=== PATIENT | male | born 1950 | race Caucasian/White ===

== ENCOUNTER 2016-06-13 17:38 | Inpatient (IN) | payer MEDICARE ==
[~2016-06-13] VITALS: Ht 185.4 cm; Wt 82.6 kg
[2016-06-13] MEDS ORDERED: IV NORMAL SALINE 1,000ML 1,000 ML IV SCH ×2 (18:05→19:34)
--- NOTE | 2016-06-13 18:08 | PHYS DOC ---
General Chief Complaint: NAUSEA/VOMITING/DIARRHEA Stated Complaint: DEHYDRATION Time Seen by MD: 18:05 Source: patient Exam Limitations: no limitations Problems: History of Present Illness Initial Comments Pt is 66/M to ED c/o n/v and dehydration. Pt states he's had n/v/d since last Friday. States he's been unable to keep anything down since then, today dry heaves. Passing lots of gas, generalized abdominal discomfort no focal pains or bloating no blood in stool/emesis. Was having loose watery stools but now "just foam and lots of gas." No travel/bad food exposure, was seen at PCP Dr Montez's office today and sent here. He reports 18# weight loss past week. On arrival 97.9, 54, 20, 96/40, 97 RA Pt reports he had a colonoscopy 05/30 and his bowels have been altered since that time but n/v began Friday. He's had subjective fevers/chills/sweats/KAPADIA/ myalgias no cp/sob/focal weakness/SOB. 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, skin cancer) Surgical History: other (back, skin cancer) Social History Smoker: quit greater than 1 year Alcohol: other (4-12 beers/week) Drugs: none Review of Systems Constitutional: chills diaphoresis fever malaise weakness Respiratory: coughdenies shortness of breath, denies wheezing Cardiovascular: denies chest pain, denies palpitations, denies syncope Gastrointestinal: see HPI Genitourinary: denies dysuria, denies frequency, denies hematuria Musculoskeletal: see HPIdenies joint swelling, denies neck pain Psychiatric/Neurological: headachedenies numbness, denies paresthesia, denies weakness Physical Exam General Appearance: WD/WN, moderate distress Eyes: bilateral eye EOMI, bilateral eye PERRL, bilateral eye normal inspection Ear, Nose, Throat: hearing grossly normal, normal ENT inspection (dry membranes ) Neck: non-tender, supple Respiratory: normal breath sounds, no respiratory distress Cardiovascular: normal peripheral pulses, bradycardia Gastrointestinal: soft (ND, BS nl, diffuse TTP without localization, no r/g/ mass) Rectal: deferred Back: no CVA tenderness, no vertebral tenderness Extremities: non-tender, normal inspection Neurologic/Psychiatric: sampling expert II-XII nml as tested, no motor/sensory deficits, alert, normal mood/affect, oriented x 3 Skin: pallor (poor skin turgor) Orders, Labs, Meds Pt HR noted to be low for extended periods running 30's/40's pt denies sx but has dizziness with standing. Pt hiccups often causing skipped beats and HR decrease. EKG: sinus yossi 40 bpm no STEMI AAS: no acute cardiopulmonary process, nonspecific nonobstructive bowel gas pattern. Pertinent labs: WBC 12, INR 1.2, K+ 3.3 (20 meq KCL given), BUN 37, Cr 1.2, CE neg. Pt continues to yossi despite now running 2nd liter NS IV bolus. Will likely need inpatient management, pt is agreeable. 2118: I discussed pt with cosmetic surgeon Cardiology Dr Chavez. He recommends dopamine 2.5-5mg, hydration, monitor, will see pt in am. 2127: Pt discussed with Dr Gomez who accepts ICU/inpatient admission. Departure Disposition: ADMITTED INPATIENT Diagnosis: arrhythmia, hypovolemia, hypokalemia, n/v, Condition: STABLE Additional Instructions: ICU admission Dr Gomez is accepting. GABRIEL EUGENE DO Jun 13, 2016 18:08
--- NOTE | 2016-06-13 18:11 | EKG ---
[address] [address] Test Date: 2016-06-13 Test Time: 18:09:33 Pat Name: MOIRA ARIZMENDI Department: Room: Gender: M Health And Nutrition Specialist: : [id number] Requested By: GABRIEL EUGENE Order Number: [id number] Reading MD: Measurements Intervals [place] Rate: 40 P: ME: QRS: 44 QRSD: 88 T: 68 QT: 526 QTc: 428 Interpretive Statements JUNCTIONAL RHYTHM T ABNORMALITY IN LATERAL LEADS NON SPECIFIC ST DEPRESSION ABNORMAL ECG RI6.01 Unconfirmed report No previous ECG available for comparison
[2016-06-13 18:32] LABS: BASO % 0 % (0-3); EOS % 0 % (0-3); HEMATOCRIT 40.2 % (39.0-53.0); HEMOGLOBIN 13.5 g/dL (13.0-17.5); LYMPH # 5.7 x10^3/uL (1.0-4.8); LYMPH % 48 % (24-48); MEAN CORPUSCULAR HEMOGLOBIN 30 pg (25-35); MEAN CORPUSCULAR HGB CONC 34 g/dL (31-37); MEAN CORPUSCULAR VOLUME 90 fL (79-100); MONO # 0.7 x10^3/uL (0.0-1.1); MONO % 6 % (0-9); NEUT # 5.5 x10^3uL (1.8-7.7); NEUT % 46 % (31-73); PLATELET COUNT 357 x10^3/uL (140-400); RED BLOOD COUNT 4.48 x10^6/uL (4.30-5.70); RED CELL DISTRIBUTION WIDTH 13.4 % (11.5-14.5)
[2016-06-13 18:48] LABS: HEMOGLOBIN ISTAT 10.5 gm/dL; POTASSIUM ISTAT 3.3 mmol/L (3.5-5.0)
[2016-06-13 18:52] LABS: ALBUMIN 3.4 g/dL (3.4-5.0); DIRECT BILIRUBIN 0.2 mg/dL (0.0-0.2); MAGNESIUM 2.3 mg/dL (1.8-2.4); TOTAL BILIRUBIN 0.7 mg/dL (0.2-1.0); TOTAL PROTEIN 7.4 g/dL (6.4-8.2)
[2016-06-13] MEDS ORDERED: POTASSIUM CHLORIDE 20 MEQ TABLET.ER. PO ONE (19:15)
[2016-06-13 19:48] LABS: % MONOS 5 % (0-10); % SEGS 44 % (35-66); PLT ESTIMATE ADEQUATE (ADEQUATE)
[2016-06-13] MEDS ORDERED: LIDO:MAALOX 1:1 20 ML SINGLE DOSE PO ONE (20:00)
[2016-06-13] MEDS ORDERED: DOPAMINE 400MG/250ML PREMIX 250 ML IV ONE (21:30)
[2016-06-13] MEDS ORDERED: ONDANSETRON PF 4 MG/2 ML VIAL. IV PRN (21:30)
[2016-06-13] MEDS ORDERED: ACETAMINOPHEN 325 MG TABLET PO PRN (21:30)
[2016-06-13] MEDS ORDERED: ONDANSETRON PF 4 MG/2 ML VIAL. IV ONE (21:30)
[2016-06-13 23:15] VITALS: BP 138/62
[2016-06-13 23:30] VITALS: BP 138/62
[2016-06-13 23:40] LABS: BARBITURATES NEG (NEG); BENZODIAZEPINES NEG (NEG); CANNABINOIDS NEG (NEG); COCAINE NEG (NEG); METHADONE NEG (NEG); OPIATES NEG (NEG); PHENCYCLIDINE NEG (NEG)
[2016-06-13 23:42] LABS: AMPHETAMINE/METHAMPHETAMINE NEG (NEG)
[2016-06-13 23:56] LABS: BACTERIA,URINE FEW /HPF (0-FEW); BILIRUBIN,URINE NEG (NEG); CLARITY,URINE CLEAR; COLOR,URINE YELLOW; GLUCOSE,URINE NEG (NEG); NITRITE,URINE NEG (NEG); RBC,URINE OCC /HPF (0-2); SQUAMOUS EPITHELIAL CELL,UR FEW /LPF; UROBILINOGEN,URINE 0.2 mg/dL (0.2 mg/dL)
[2016-06-14] VITALS (24 sets, daily range): BP systolic 63–180; BP diastolic 34–80
--- NOTE | 2016-06-14 02:03 | ACF ---
Admission Criteria Forms CARDIAC ARRHYTHMIA Clinical Indications for Inpatient Care (Place 'X' for any and all applicable criteria): Ongoing inpatient care for cardiac arrhythmia needed as indicated by ANY ONE of the following(1)(2)(3)(4)(7) : [X]I. Vital sign abnormality secondary to arrhythmia [ ]II. Patient has implantable cardioverter-defibrillator that has fired more than once within past 24 hours or needs immediate adjustment of settings that cannot be done other than in inpatient setting. [ ]III. Altered mental status [ ]IV. Resuscitated or aborted ventricular fibrillation or ventricular tachycardia in patient without implantable cardioverter- defibrillator [ ]V. Initiation of antiarrhythmic drug therapy is needed in patient at high risk of adverse effects as indicated by ANY ONE of the following: [ ]a) Significant structural heart disease (e.g., reduced ejection fraction, congenital heart disease, valvular heart disease) [ ]b) Prolonged QT interval [ ]c) Underlying sinus node or atrioventricular conduction disturbances [ ]d) Need for treatment with antiarrhythmic drugs that have significant proarrhythmic potential (e.g., dofetilide, sotalol, procainamide) [ ]. Acute myocardial ischemia as a consequence or suspected cause of arrhythmia [ ]VII. Syncope secondary to arrhythmia [ ]VIII. Heart failure (eg, pulmonary edema) secondary to arrhythmia) (26)(27) [ ]IX. Patient has implantable cardioverter defibrillator that has fired more than once within past 24hr or needs immediate adjustment of settings that cannot be done other than in inpatient setting.(8) [ ]X. Sustained (30 seconds or more of ventricular rhythm at more than 100 beats per minute) ventricular tachycardia and ANY ONE of the following: [ ]a) No previous known history of sustained ventricular tachycardia [ ]b) Structural heart disease (eg, reduced ejection fraction, hypertrophic cardiomyopathy, severe valvular disease) and without implantable cardioverter-defibrillator(24)(32)(33) [ ]c) Need for treatment of drug toxicity (eg, digitalis toxicity)(34 ) [ ]d) Need for electrical cardioversion Extended stay beyond goal length of stay may be needed for [ ]a) Hemodynamic stability [ ]b) Arrhythmia evaluation completed [ ]c) Reversible causes of arrhythmia eliminated or mitigated [ ]d) Specific antiarrhythmia treatment initiated as appropriate [ ]e) Anticoagulation requirements addressed (or anticoagulation not required). [ ]f) Medical comorbidities manageable at lower level of care The original [facility] content created by [facility] has been revised. The portions of the content which have been revised are identified through the use of italic text or in bold, and [facility] has neither reviewed nor approved the modified material. All other unmodified content is copyright [facility]. Please see references footnoted in the original [facility] edition 2016 Admission Criteria Met?: Yes NIKA WADE Jun 14, 2016 02:03
[2016-06-14] MEDS: IV NORMAL SALINE 1,000ML 1,000 ML IV SCH ×5 (05:36→15:49)
[2016-06-14] MEDS: DOPAMINE 400MG/250ML PREMIX 250 ML IV PRN ×2 (06:23→17:49)
[2016-06-14 06:26] LABS: BASO % 0 % (0-3); EOS % 0 % (0-3); HEMATOCRIT 38.7 % (39.0-53.0); HEMOGLOBIN 12.8 g/dL (13.0-17.5); LYMPH # 5.4 x10^3/uL (1.0-4.8); LYMPH % 37 % (24-48); MEAN CORPUSCULAR HEMOGLOBIN 30 pg (25-35); MEAN CORPUSCULAR HGB CONC 33 g/dL (31-37); MEAN CORPUSCULAR VOLUME 91 fL (79-100); MONO % 7 % (0-9); NEUT % 55 % (31-73); PLATELET COUNT 364 x10^3/uL (140-400); RED BLOOD COUNT 4.27 x10^6/uL (4.30-5.70); RED CELL DISTRIBUTION WIDTH 12.9 % (11.5-14.5); WHITE BLOOD COUNT 14.5 x10^3/uL (4.0-11.0)
[2016-06-14 06:42] LABS: ALBUMIN 3.1 g/dL (3.4-5.0); ALBUMIN/GLOBULIN RATIO 0.8 (1.0-1.7); CALCIUM 8.5 mg/dL (8.5-10.1); GFR 74.5; POTASSIUM 3.2 mmol/L (3.5-5.1); TOTAL BILIRUBIN 0.5 mg/dL (0.2-1.0); TOTAL PROTEIN 6.9 g/dL (6.4-8.2)
--- NOTE | 2016-06-14 08:32 | RAD ---
Acute abdomen series with chest, 3 views, 06/13/2016: History: Dizziness, nausea and vomiting Gas is present in large and small bowel in a nonspecific pattern. No free air is seen in the abdomen. There is no evidence of organomegaly. Lower pelvic calcifications are probably phleboliths. The heart size is normal. There appear to be a few scattered parenchymal scars. No pulmonary consolidation is seen. There is no evidence of pleural fluid. IMPRESSION: No acute abdominal abnormality is detected.
--- NOTE | 2016-06-14 09:10 | PDOC2 ---
JAKI LOGAN [employer] 06/14/16 0910: CONSULT Date of Admission DATE: 06/14/16 TIME: 08:34 Reason for Consult: bradycardia History of Present Illness Mr Jackson is a 66 year old male who presented to the ED with complaints of nausea, vomiting for at least 3 days. He reports a colonoscopy about 1 week ago and not feeling good since then. He complains of sore throat and cough that started several days ago. He initially felt his chest was "congested" but after treating himself with mucinex he feels that has resolved. He continues to have a non productive cough. He reports lightheadedness yesterday on standing only. He denies any chest discomfort, palpitations, significant fatigue or syncope. He normally walks 1/2 mile twice daily without problems. Currently he is symptom free with the exception of a dry cough, remains on Dopamine drip at 10 mcg and sinus yossi at 48 bpm on the monitor. 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 Past Surgical History cancer removal as above, back surgery Family History Mother - CAD, HIT Social History prior smoker, 5 beers per week, no illicit drugs Current Medications Current Medications Sodium Chloride (Iv Sodium Chloride 0.9% 1,000ml) 1,000 ml @ 1,000 mls/hr Q1H IV Last administered on 06/13/16 18:05; Start 06/13/16 at 18:05; Stop at 19:04; Status DC Potassium Chloride (Klor-Con) 20 meq 1X ONCE PO Last administered on 20:37; Start 06/13/16 at 19:15; Stop 06/13/16 at 19:16; Status DC Multi-Ingredient Mouthwash/Gargle 20 ml 20 ml 1X ONCE PO Last administered on 06/13/16 20:36; Start 06/13/16 at 20:00; Stop 06/13/16 at 20:01; Status DC Sodium Chloride (Iv Sodium Chloride 0.9% 1,000ml) 1,000 ml @ 1,000 mls/hr Q1H IV Last administered on 06/13/16 20:36; Start 06/13/16 at 19:34; Stop at 20:33; Status DC Ondansetron HCl 4 mg 4 mg 1X ONCE IV Last administered on 06/13/16 23:49; Start 06/13/16 at 21:30; Stop 06/13/16 at 21:31; Status DC Dopamine HCl/ Dextrose 250 ml @ 14.458 mls/ hr 1X ONCE IV Last administered on 06/13/16 21:56; Start 06/13/16 at 21:30; Stop 06/14/16 at 14:47 Ondansetron HCl (Zofran) 4 mg PRN Q4HRS PRN IV NAUSEA/VOMITING; Start 06/13/16 at 21:30; Stop 06/14/16 at 21:29 Acetaminophen 650 mg 650 mg PRN Q4HRS PRN PO FEVER; Start 06/13/16 at 21:30; Stop 06/14/16 at 21:29 Sodium Chloride 1,000 ml @ 200 mls/hr Q5H IV Last administered on 06/14/16 05 :36; Start 06/14/16 at 00:00 Dopamine HCl/ Dextrose 250 ml @ 14.458 mls/ hr CONT PRN IV SEE I/O RECORD Last administered on 06/14/16 06:23; Start 06/14/16 at 06:30 Allergies: Coded Allergies: No Known Drug Allergies (Unverified , 06/13/16) Review of System as per HPI or negative General: Alert, Oriented X3, Cooperative, No acute distress HEENT: Atraumatic, EOMI, Mucous membr. moist/pink Lungs: Clear to auscultation, Normal air movement Heart: Normal S1, Normal S2, Other (bradycardia, no gallops, clicks or rubs) Abdomen: Normal bowel sounds, Soft Extremities: No cyanosis, Normal pulses Neuro: Normal speech, Strength at 5/5 X4 ext Psych/Mental Status: Mental status NL, Mood NL VITALS Vital Signs Date Time Temp Pulse Resp B/P Pulse Ox O2 Delivery O2 Flow Rate FiO2 06/14/16 06:00 51 18 175/80 99 Room Air 06/14/16 05:00 98.3 Labs Laboratory Tests Test 06/13/16 18:15 06/13/16 18:21 06/13/16 18:35 06/13/16 22:50 White Blood Count 12.0x10^3/uL (4.0-11.0) Red Blood Count 4.48x10^6/uL (4.30-5.70) Hemoglobin 13.5g/dL (13.0-17.5) Hematocrit 40.2% (39.0-53.0) Mean Corpuscular Volume 90fL (79-100) Mean Corpuscular Hemoglobin 30pg (25-35) Mean Corpuscular Hemoglobin Concent 34g/dL (31-37) Red Cell Distribution Width 13.4% (11.5-14.5) Platelet Count 357x10^3/uL (140-400) Neutrophils (%) (Auto) 46% (31-73) Lymphocytes (%) (Auto) 48% (24-48) Monocytes (%) (Auto) 6% (0-9) Eosinophils (%) (Auto) 0% (0-3) Basophils (%) (Auto) 0% (0-3) Neutrophils # (Auto) 5.5x10^3uL (1.8-7.7) Lymphocytes # (Auto) 5.7x10^3/uL (1.0-4.8) Monocytes # (Auto) 0.7x10^3/uL (0.0-1.1) Eosinophils # (Auto) 0.0x10^3/uL (0.0-0.7) Basophils # (Auto) 0.0x10^3/uL (0.0-0.2) Segmented Neutrophils % 44% (35-66) Lymphocytes % 18% (24-48) Monocytes % 5% (0-10) Platelet Estimate Adequate (ADEQUATE) Prothrombin Time 11.8SEC (9.4-11.4) Prothromb Time International Ratio 1.2 (0.9-1.1) Activated Partial Thromboplast Time < 21SEC (23-33) Lactic Acid Level 2.2mmol/L (0.4-2.0) Magnesium Level 2.3mg/dL (1.8-2.4) Total Bilirubin 0.7mg/dL (0.2-1.0) Direct Bilirubin 0.2mg/dL (0.0-0.2) Aspartate Amino Transf (AST/SGOT) 15U/L (15-37) Alanine Aminotransferase (ALT/SGPT) 33U/L (16-63) Alkaline Phosphatase 67U/L (46-116) Creatine Kinase 69U/L (39-308) Troponin I Quantitative < 0.017ng/mL (0-0.055) TK-Dvs-E-Type Natriuretic Peptide 97pg/mL (0-124) Total Protein 7.4g/dL (6.4-8.2) Albumin 3.4g/dL (3.4-5.0) Lipase 289U/L (73-393) Ethyl Alcohol Level < 10mg/dL (0-10) Bedside Troponin I 0.00ng/ml (<0.08) Bedside Hemoglobin 10.5gm/dL Bedside Hematocrit 31% Bedside Sodium 145mmol/L (135-145) Bedside Potassium 3.3mmol/L (3.5-5.0) Bedside Chloride 103mmol/L (98-110) Bedside Total CO2 26mmol/L (23-32) Anion Gap 21mmol/L (6-14) Bedside Blood Urea Nitrogen 37mg/dL (8-26) Bedside Creatinine 1.2mg/dL (0.5-1.4) Glucose Level 127mg/dL (60-99) Bedside Ionized Calcium (Danny) 1.16mmol/L (1.13-1.32) Urine Collection Type Unknown Urine Color Yellow Urine Clarity Clear Urine pH 5.5 Urine Specific [place] 1.020 Urine Protein 100 mg/dl (NEG-TRACE) Urine Glucose (UA) Negmg/dL (NEG) Urine Ketones (Stick) Tracemg/dL (NEG) Urine Blood Small (NEG) Urine Nitrite Neg (NEG) Urine Bilirubin Neg (NEG) Urine Urobilinogen Dipstick 0.2mg/dL (0.2 mg/dL) Urine Leukocyte Esterase Neg (NEG) Urine RBC Occ/HPF (0-2) Urine WBC 1-4/HPF (0-4) Urine Squamous Epithelial Cells Few/LPF Urine Bacteria Few/HPF (0-FEW) Urine Mucus Slight/LPF Urine Opiates Screen Neg (NEG) Urine Methadone Screen Neg (NEG) Urine Barbiturates Neg (NEG) Urine Phencyclidine Screen Neg (NEG) Urine Amphetamine/Methamphetamine Neg (NEG) Urine Benzodiazepines Screen Neg (NEG) Urine Cocaine Screen Neg (NEG) Urine Cannabinoids Screen Neg (NEG) Urine Ethyl Alcohol Neg (NEG) Test 06/14/16 00:06/14/16 05:39 Lactic Acid Level 1.0mmol/L (0.4-2.0) Troponin I Quantitative < 0.017ng/mL (0-0.055) 0.039ng/mL (0-0.055) White Blood Count 14.5x10^3/uL (4.0-11.0) Red Blood Count 4.27x10^6/uL (4.30-5.70) Hemoglobin 12.8g/dL (13.0-17.5) Hematocrit 38.7% (39.0-53.0) Mean Corpuscular Volume 91fL (79-100) Mean Corpuscular Hemoglobin 30pg (25-35) Mean Corpuscular Hemoglobin Concent 33g/dL (31-37) Red Cell Distribution Width 12.9% (11.5-14.5) Platelet Count 364x10^3/uL (140-400) Neutrophils (%) (Auto) 55% (31-73) Lymphocytes (%) (Auto) 37% (24-48) Monocytes (%) (Auto) 7% (0-9) Eosinophils (%) (Auto) 0% (0-3) Basophils (%) (Auto) 0% (0-3) Neutrophils # (Auto) 8.0x10^3uL (1.8-7.7) Lymphocytes # (Auto) 5.4x10^3/uL (1.0-4.8) Monocytes # (Auto) 1.0x10^3/uL (0.0-1.1) Eosinophils # (Auto) 0.0x10^3/uL (0.0-0.7) Basophils # (Auto) 0.0x10^3/uL (0.0-0.2) Sodium Level 145mmol/L (136-145) Potassium Level 3.2mmol/L (3.5-5.1) Chloride Level 109mmol/L (98-107) Carbon Dioxide Level 29mmol/L (21-32) Anion Gap 7 (6-14) Blood Urea Nitrogen 35mg/dL (8-26) Creatinine 1.0mg/dL (0.7-1.3) Estimated GFR (Cockcroft-Gault) 74.5 BUN/Creatinine Ratio 35 (6-20) Glucose Level 128mg/dL (70-99) Calcium Level 8.5mg/dL (8.5-10.1) Total Bilirubin 0.5mg/dL (0.2-1.0) Aspartate Amino Transf (AST/SGOT) 16U/L (15-37) Alanine Aminotransferase (ALT/SGPT) 35U/L (16-63) Alkaline Phosphatase 63U/L (46-116) Total Protein 6.9g/dL (6.4-8.2) Albumin 3.1g/dL (3.4-5.0) Albumin/Globulin Ratio 0.8 (1.0-1.7) Images acute abd - pending CXR - pending EKG - pending Assessment/Plan 1. bradycardia - avoid any AV prasad blocking agents. on dopamine. Will check echocardiogram, orthostatic vital signs and attempt to wean dopamine. If he remains asymptomatic would ambulate in room for chronotropic response. Would need outpatient event monitoring. 2. hypertension- likely secondary to dopamine. pressure now controlled. 3. pre renal azotemia - secondary to N/V/D 4. ? gastroenteritis - as per PCP Problems: ZNAA MERAZ MD 06/14/16 1411: CONSULT Allergies: Coded Allergies: No Known Drug Allergies (Unverified , 06/13/16) Assessment/Plan Patient seen and examined The patient reports feeling better today and was able to take clear liquids. Bradycardia. Rhythm is a proximal 50 and a sinus rhythm. Continues on dopamine. Hopefully this will resolve when the patient's underlying problems have resolved and he is receiving IV fluids. We'll continue to monitor. However I did raise the possibility of a pacemaker if his underlying condition is stabilized he remains bradycardic. Orthostatic hypotension. the patient continues to have severe orthostatic hypotension today. Continuing IV fluids. Nausea and vomiting. Significantly improved today. Patient was able to take oral fluids. Prerenal azotemia. Improved with IV fluids. Possible gastroenteritis. Thank you for allowing us to participate in the care of your patient. Problems: JAKI LOGAN APRN Jun 14, 2016 09:10 ZANA MERAZ MD Jun 14, 2016 14:11
[2016-06-14] MEDS ORDERED: POTASSIUM CHLORIDE 20MEQ 100 ML IV ONE (09:15)
--- NOTE | 2016-06-14 10:00 | RAD ---
Portable chest, 06/14/2016: History: Cough Comparison is made yesterday study. The heart size is normal. No pulmonary. Is seen. There is no evidence of pleural fluid. IMPRESSION: No acute cardiopulmonary abnormality is detected.
[2016-06-14] MEDS: POTASSIUM CL 40MEQ IN 0.9%NACL 1,000 ML IV SCH (17:45)
--- NOTE | 2016-06-14 18:14 | HP ---
ADMIT DATE: 06/14/2016 HISTORY OF PRESENT ILLNESS: The patient is a 66-year-old male who came to the Emergency Room complaining of nausea and vomiting that started last Friday. Apparently, he had some form of a rash that involved in his head and upper torso on Friday and vanished without any treatment. On Friday, he started having recurrent episodes of nausea and vomiting. He is unable to keep anything down since then. Yesterday, he did have dry heaves. He is passing lots of gas, generalized abdominal discomfort. No local pain. No bloating. No blood per stool or in stool or emesis. He did have loose watery stools, but now it is just formed and lots of gas. He denied any recent travel or ill contact or exposure to bad food. Nobody else in his family has similar problem. He lives with his and she does not have any complaints like this. He was seen by his primary care physician who sent him to the Emergency Room. He apparently lost about 18 pounds over the last week. When he arrived to the Emergency Room, he was somewhat hypotensive and bradycardic. He reported that he had had colonoscopy on 05/30 as a screening as his father of colon cancer and apparently a precancerous polyp was removed. He stated that his bowel has been altered since that time, but has had no nausea or vomiting since last Friday. He denied any fever, chills or rigors. Denied any aches or pains. Denied any chest pain or shortness of breath. He did complain of dizziness and lightheadedness yesterday when he left his primary care physician's office. PAST MEDICAL HISTORY: Significant for hyperlipidemia, generalized osteoarthritis, skin cancer in his left ear. PAST SURGICAL HISTORY: Significant for skin cancer removal, back surgery, colonoscopy. ALLERGIES: He has no known drug allergies. MEDICATIONS: He is currently on no medication. Apparently, he was started on cholesterol lowering agent, but he has not taken yet. Of note, the patient has had Legionnaires pneumonia in 12/2015. FAMILY HISTORY: He has 2 brothers and 2 sisters. His older sister had a CVA. His father at age of 83 because of colon cancer. Mother at age of 93 because of heart problem. SOCIAL HISTORY: He is , has 2 sons and 2 daughters. He quit smoking when he was 25 years old. He drinks anything between 5-6 cans of beer a week, sometimes more. 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 REVIEW OF SYSTEMS: The patient denied any blurring of vision, cataract, glaucoma or macular degeneration. Denied any earache, tinnitus or sensorineural deafness. Denied any nosebleeds, stuffy nose or postnasal drip. He did complain of sore throat, but no sore tongue, toothache or hoarseness of voice. He did complain of nausea and vomiting. Denied any diarrhea or constipation. Denied any hematemesis, melena or hematochezia. Denied any dysuria, frequency or hematuria. Denied any chest pain, shortness of breath, orthopnea or paroxysmal nocturnal dyspnea. He did complain of cough that is mostly dry and he has had sore throat since he had his colonoscopy. PHYSICAL EXAMINATION: VITAL SIGNS: On arrival to the Emergency Room, he was in sinus bradycardia with heart rate of 54, blood pressure was 104/53, temperature was 97.9, respiratory rate was 20, and oxygen saturation was 97% on room air. HEENT: Normocephalic, atraumatic. NECK: Supple. HEART: Normal first and second heart sounds. No gallop, rub or murmur. CHEST: Clear to auscultation. No crepitation or rhonchi. ABDOMEN: Distended, soft, nontender. No guarding or rigidity. No organomegaly. All hernial orifices intact. Bowel sounds normal. NEUROLOGIC: He was awake, alert, responding appropriately. Cranial nerves intact. EXTREMITIES: He moves extremities without difficulty. He ambulates without assistance or assistive devices. LABORATORY DATA: On arrival showed a white cell count of 12,000, hemoglobin 13.5, hematocrit 40, MCV 90 and platelet count of 357,000 with manual differential showed 46% polymorphs, 48% lymphocytes and 6% monocytes. Serum sodium was 145, potassium 3.3, chloride 103, bicarbonate 26, anion gap of 21, BUN 37, creatinine was 1.2 and glucose was 127. Ionized calcium was 1.16. His magnesium was 2.3. Total bilirubin, AST, ALT, alkaline phosphatase were normal. His CK was only 69. Beta-natriuretic peptide was 97. Total protein was 7.4, albumin was 3.4. Lipase was 289. His prothrombin time was 11.8, INR 1.2, APTT was less than 21. Urinalysis showed the urine was yellow, clear with a pH of 5.5 with specific gravity of 1.020. There was large amount of protein. The urine was negative for glucose. There was trace of ketones, small amount of blood, negative for nitrite and leukocyte esterase. There were occasional rbc's, 1-4 wbc's, very few bacteria. His urine toxicology screen was negative. His acute abdomen series showed that the heart size is normal. There appears to be a few scattered parenchymal scars. No pulmonary consolidation is seen. There is no evidence of pleural effusion or pneumothorax. The gas pattern present in small and large bowel is nonspecific. No free air is seen in the abdomen. There is no evidence of organomegaly, lower pelvic calcification or probably phlebolith. He has had an EKG done, which showed he was in sinus bradycardia. ASSESSMENT AND PLAN: The patient was admitted for rehydration. He was started on IV fluid in the form of sodium chloride at 200 mL per hour, started also on Zofran and Tylenol. Apparently, his blood pressure was low and therefore he was started on dopamine drip and his heart rate was consistently low in the 40s. The plan is to continue with IV fluids and dopamine, follow his lab work, consult cardiology given his persistent bradycardia and decide on further management accordingly. PEDRO DANIEL MD DR: DEB/sean JOB#: [id number] / [id number]
--- NOTE | 2016-06-14 22:49 | PN ---
DATE: 06/14/2016 SUBJECTIVE: The patient was admitted yesterday with recurrent bouts of nausea, vomiting, dehydration, started about last Friday. He was evaluated in the Emergency Room and was started on IV fluid. He was noted to have bradycardia with heart rate in the lower 40s. He did tolerate liquid diet this morning and might be able to advance diet later on. He was seen in consultation by the dopeman. The plan was to continue with IV fluid. Given his marked bradycardia in the face of hypertension, the plan is to continue with IV fluid and attempt to wean the dopamine as tolerated. OBJECTIVE: GENERAL: When I saw him this afternoon, he looked well and was clearly in no apparent respiratory distress, slightly pale, but no jaundice, cyanosis, or thyromegaly. No jugular venous distension. No limb edema. VITAL SIGNS: His heart rate was 50, blood pressure was 163/74, temperature was 98.8, respiratory rate 18, and oxygen saturation was 96% on room air. HEAD, EYES, EARS, NOSE, AND THROAT: Showed normocephalic, atraumatic. NECK: Supple. HEART: Showed normal first and second heart sounds. No gallop, rub, or murmur. CHEST: Clear to auscultation. No crepitation or rhonchi. ABDOMEN: Distended. Soft, nontender. No guarding or rigidity. No organomegaly. Hernial orifices intact. Bowel sounds normal. NEUROLOGIC: He was awake, alert, responding appropriately. Cranial nerves intact. He moves extremities without difficulty, ambulates without assistance or assistive devices. His intake over the last 24 hour was 3425 and output was 1400. LABORATORY DATA: His lab work today showed a white cell count is up to 14,500, hemoglobin 12.8, hematocrit 38.7, MCV 91, and platelet count of 364,000. His chemistry showed that his serum sodium was 145, potassium 3.2, chloride 109, bicarbonate 29, anion gap of 7, BUN 35, creatinine 1, estimated GFR was 74 mL per minute. His glucose was 128, calcium was 8.1. Total bilirubin, AST, ALT, alkaline phosphatase were normal. His total protein was 6.9, albumin was 3.1. ASSESSMENT: 1. Acute gastroenteritis. 2. Prerenal azotemia. 3. Bradycardia in the face of dehydration. PLAN: If his heart rate is not improving, he might end up with permanent pacemaker. PEDRO DANIEL MD DR: DEB/sean JOB#: [id number] / [id number]
[2016-06-15] VITALS (25 sets, daily range): BP systolic 73–195; BP diastolic 41–101
[2016-06-15] MEDS: POTASSIUM CL 40MEQ IN 0.9%NACL 1,000 ML IV SCH ×2 (05:08→19:33)
[2016-06-15 05:25] LABS: HEMATOCRIT 38.8 % (39.0-53.0); HEMOGLOBIN 13.2 g/dL (13.0-17.5); RED BLOOD COUNT 4.31 x10^6/uL (4.30-5.70); RED CELL DISTRIBUTION WIDTH 13.3 % (11.5-14.5); WHITE BLOOD COUNT 11.4 x10^3/uL (4.0-11.0)
[2016-06-15 05:35] LABS: CALCIUM 8.7 mg/dL (8.5-10.1); CREATININE 0.9 mg/dL (0.7-1.3); GFR 84.2; MAGNESIUM 2.1 mg/dL (1.8-2.4); POTASSIUM 3.9 mmol/L (3.5-5.1)
[2016-06-15] MEDS: DOPAMINE 400MG/250ML PREMIX 250 ML IV PRN (07:39)
--- NOTE | 2016-06-15 08:45 | PDOC ---
PROVIDER NOTE PROVIDER NOTE PROVIDER NOTE Cardiology Follow up Note: No acute events overnight. Still on Dopamine 5mcg/kg/min. Reports feeling better. Dopamine turned off for 15 min and pt had flushing, vision changes with systolic BP drop to 70/40. HR remained in the 60's and SR. On exam he is a/o x 3. CVS: RRR pulm mild rhonchi abd soft ext no edema neuro non focal Labs reviewed. Meds reviewed. Impression: Orthostatic syncope s/p aggressive hydration with 9L, total positive 5L Bradycardia, likely related to high vagal tone. Plan: 1. Check random cortisol level, consider adrenal insufficiency. 2. Check echo today. 3. Will start Midodrine 5mg p.o tid 4. No acute indication for pacer given HR stable, will continue to monitor for any bradycardia, symptoms appear to be related to hypotension. CARLEE CALL MD Jun 15, 2016 08:45
[2016-06-15] MEDS ORDERED: ONDANSETRON PF 4 MG/2 ML VIAL. ONE (09:39)
[2016-06-15] MEDS: MIDODRINE 5 MG TABLET PO SCH ×3 (09:46→18:00)
--- NOTE | 2016-06-15 13:11 | CARD ---
APPROVED REPORT EXAM: Two-dimensional and M-mode echocardiogram with Doppler and color Doppler. Other Information Quality : AverageHR: 51bpm Rhythm : Bradycardia INDICATION Bradycardia, elevated troponin 2D DIMENSIONS Left Atrium(2D)3.4 (1.6-4.0cm)IVSd0.9 (0.7-1.1cm) Aortic Root(2D)2.9 (2.0-3.7cm)LVDd4.3 (3.9-5.9cm) LVOT Diameter2.1 (1.8-2.4cm)PWd0.9 (0.7-1.1cm) LVDs2.6 (2.5-4.0cm)FS (%) 38.9 % SV58.1 mlLVEF(%)69.6 (>50%) CO2.7 L/min M-Mode DIMENSIONS Aortic Cusp Exc1.75 (1.5-2.0cm) Aortic Valve AoV Peak Isidro.136.6cm/sAoV VTI28.1cm AO Peak GR.7.5mmHgAO Mean GR.4mmHg RITESH (VTI)3.08cm2 Mitral Valve MV E Mxkkmziy33.8cm/sMV E Peak Gr.3mmHg MV DECEL IUIR554dpIR A Cwlwbdkv40.0cm/s MV KIJ56vqU/A Ratio1.5 MV A Flgkvlts06exBQX (PHT)3.67cm2 Tricuspid Valve TR P. Mgmgbglk455wf/sRAP OGNLDWJU8rnLd TR Peak Gr.85npZhWMKV38reLi LEFT VENTRICLE The left ventricle is normal size. There is normal left ventricular wall thickness. The left ventricu lar systolic function is normal and the ejection fraction is within normal range. EF 65% There is nor mal LV segmental wall motion. No left ventricle thrombus noted on this study. There is no ventricular septal defect visualized. There is no left ventricular aneurysm. There is no mass noted in the left ventricle. RIGHT VENTRICLE The right ventricle is normal size. There is normal right ventricular wall thickness. The right ventr icular systolic function is normal. ATRIA The left atrium size is normal. The right atrium size is normal. The interatrial septum is intact wit h no evidence for an atrial septal defect or patent foramen ovale as noted on 2-D or Doppler imaging. AORTIC VALVE The aortic valve is normal in structure and function. Doppler and Color Flow revealed no significant aortic regurgitation. There is no significant aortic valvular stenosis. There is no aortic valvular v egetation. MITRAL VALVE The mitral valve is normal in structure and function. There is no evidence of mitral valve prolapse. There is no mitral valve stenosis. Doppler and Color Flow revealed mild mitral regurgitation. TRICUSPID VALVE The tricuspid valve is normal in structure and function. Doppler and Color Flow revealed mild tricusp id regurgitation. There is no tricuspid valve prolapse or vegetation. There is no tricuspid valve david nosis. PULMONIC VALVE Doppler and Color Flow revealed no pulmonic valvular regurgitation. There is no pulmonic valvular david nosis. GREAT VESSELS The aortic root is normal in size. The ascending aorta is normal in size. The IVC is normal in size a nd collapses >50% with inspiration. PERICARDIAL EFFUSION There is no pleural effusion. There is no evidence of significant pericardial effusion. Critical Notification Critical Value: No <Conclusion> The left ventricular systolic function is normal and the ejection fraction is within normal range. EF 65% There is normal LV segmental wall motion.
--- NOTE | 2016-06-15 21:21 | PN ---
DATE: 06/15/2016 SUBJECTIVE: The patient is a 66-year-old male patient who was admitted with recurrent bouts of nausea, vomiting and he was bradycardic and hypotensive, started on dopamine drip; however, when his dopamine drip turned off for 15 minutes, the patient had flashing vision changes with systolic blood pressure dropped down to 70/40. However, his heart rate remained in the 50s in sinus rhythm. He was apparently started on midodrine 5 mg 3 times a day. He was aggressively rehydrated and received a total of 9 liters without much improvement; however, after he was started on midodrine, he remained stable. Although his blood pressure remained borderline, he has no further episode of syncope. OBJECTIVE: GENERAL: When I examined him this afternoon, he looked well and was clearly in no apparent respiratory distress, slightly pale, but no jaundice, cyanosis, or thyromegaly. No jugular venous distention. No limb edema. VITAL SIGNS: His heart rate was 55, blood pressure was 80/44, temperature was 98.3, respiratory rate was 20, and oxygen saturation was 100% on room air. HEAD, EYES, EARS, NOSE AND THROAT: Showed normocephalic, atraumatic. NECK: Supple. HEART: Showed normal first and second heart sounds with no gallop, rub or murmur. CHEST: Clear to auscultation. No crepitation or rhonchi. ABDOMEN: Distended, soft, nontender. No guarding or rigidity. No organomegaly. All hernial orifices intact. Bowel sounds normal. NEUROLOGIC: He was awake, alert, responding appropriately. Cranial nerves intact. He moves extremities without difficulty. He did have some episodes of nausea this morning requiring Zofran; however, he managed to eat and keep his fluid in without further episodes of nausea or vomiting, has also bowel movement. His intake over the last 24 hours was 6763, output was 3350. LABORATORY DATA: As of this morning, his serum sodium was 142, potassium 3.9, chloride 107, bicarbonate 30, anion gap of 5, BUN ____, creatinine 0.9. Estimated GFR was 84 mL per minute. His glucose 114. Calcium was 8.7. Magnesium was 2.1. His TSH was 0.568 and morning cortisol was 13 mcg/dL, normal range 6.2 to 19.4. ASSESSMENT: Acute gastroenteritis that resolved, prerenal azotemia improved. The patient has received about a total of 9 liters of IV fluid, bradycardia in the face of dehydration, probably due to high vagal tone, orthostatic hypotension. The patient became hypotensive once the dopamine was discontinued. He is now on midodrine 5 mg 3 times a day. His random morning cortisol was 13 mcg/dL. PLAN: My plan is to repeat his labs tomorrow and check also his morning cortisol again and decide on further management in collaboration with the Cardiology team. PEDRO DANIEL MD DR: DEB/sean JOB#: [id number] / [id number]
[2016-06-16] VITALS (23 sets, daily range): BP systolic 84–180; BP diastolic 47–89
[2016-06-16 06:33] LABS: HEMATOCRIT 37.9 % (39.0-53.0); RED BLOOD COUNT 4.2 x10^6/uL (4.30-5.70); RED CELL DISTRIBUTION WIDTH 13.2 % (11.5-14.5); WHITE BLOOD COUNT 9.4 x10^3/uL (4.0-11.0)
[2016-06-16 07:12] LABS: ALBUMIN 2.8 g/dL (3.4-5.0); ALBUMIN/GLOBULIN RATIO 0.8 (1.0-1.7); CALCIUM 8.5 mg/dL (8.5-10.1); GFR 74.5; POTASSIUM 3.8 mmol/L (3.5-5.1); TOTAL BILIRUBIN 0.6 mg/dL (0.2-1.0); TOTAL PROTEIN 6.3 g/dL (6.4-8.2)
[2016-06-16] MEDS: MIDODRINE 5 MG TABLET PO SCH ×3 (07:47→17:35)
[2016-06-16] MEDS: POTASSIUM CL 40MEQ IN 0.9%NACL 1,000 ML IV SCH ×2 (07:48→22:20)
--- NOTE | 2016-06-16 10:13 | PDOC ---
PROVIDER NOTE PROVIDER NOTE PROVIDER NOTE S: No acute events overnight. Continues to have orthostasis. O: HR 50's, BP 120/80. +orthostatic 140 to 100 a/o x 3. nad no edema normal s1/s2 Labs reviewed, normal random cortisol, normal LFT's, Renal panel. Trop neg Meds reviewed. Echo wnl. Impression: Orthostatic hypotension Mild bradycardia Plan: 1. Continue midodrine 2. Asked nursing staff to start KAMILAH hose 3. High salt diet today 4. Repeat ortho and ambulate after lunch and document appropriate chronotropic response. Will follow. CARLEE CALL MD Jun 16, 2016 10:13
[2016-06-16] MEDS ORDERED: ONDANSETRON PF 4 MG/2 ML VIAL. IV PRN (19:45)
[2016-06-17] VITALS (12 sets, daily range): BP systolic 79–167; BP diastolic 61–92
--- NOTE | 2016-06-17 01:30 | PN ---
DATE: 06/16/2016 SUBJECTIVE: The patient is resting, slightly propped up in bed, in no apparent respiratory distress. He apparently has been able to walk today, although he has marked postural hypertension. He has been asymptomatic mostly. He has been eating and drinking without problem. He has no further episodes of nausea, vomiting. He is on midodrine 5 mg 3 times a day and apparently, his salt intake was also increased as per the construction manager's recommendation IV fluid. He continued to be on normal saline with potassium chloride at 75 mL per hour, although he is no longer on dopamine. PHYSICAL EXAMINATION: GENERAL: When I examined him this afternoon, he looked well and was clearly in no apparent respiratory distress, pale, but not jaundiced, cyanosed. No lymphadenopathy or thyromegaly. No jugular venous distention. No limb edema. VITAL SIGNS: His heart rate was 62, blood pressure was 116/62, temperature was 98, respiratory rate was 25, and oxygen saturation was 99% on room air. HEAD, EYES, EARS, NOSE AND THROAT: Showed normocephalic, atraumatic. NECK: Supple. HEART: Showed normal first and second heart sounds with no gallop, rub or murmur. CHEST: Clear to auscultation. No crepitation or rhonchi. ABDOMEN: Distended, soft, nontender. No guarding or rigidity. No organomegaly. Hernial orifices intact. Bowel sounds normal. NEUROLOGIC: He was awake, alert, responding appropriately. Cranial nerves intact. He moves extremities without difficulty, ambulates without assistance or assistive devices. His intake over the last 24-hour was 2450, output was 1800. LABORATORY DATA: Showed a serum sodium 140, potassium 3.8, chloride 107, bicarbonate 28, anion gap of 5, BUN 17, creatinine 1, estimated GFR was 74 mL per minute. His glucose was 98, calcium was 8.5. Total bilirubin, AST, ALT, alkaline phosphatase were normal. Total protein was 6.3, albumin 2.8. His morning cortisol was even higher at 16.8. ASSESSMENT: Postural hypotension, persistent bradycardia. PLAN: To continue with midodrine 5 mg 3 times a day and encourage mobility. So far, there is no clear-cut indication for permanent pacemaker. PEDRO DANIEL MD DR: Ivy JOB#: [id number] / [id number]
[2016-06-17] MEDS: MIDODRINE 5 MG TABLET PO SCH (08:13)
[2016-06-17] MEDS ORDERED: MIDO5TAB PO (10:22)
[2016-06-17] MEDS: POTASSIUM CL 40MEQ IN 0.9%NACL 1,000 ML IV SCH (11:40)
[2016-06-17 15:04] LABS: % LYMPHS 18 % (24-48)
--- NOTE | 2016-06-17 15:26 | DS ---
DATE OF DISCHARGE: 06/17/2016 DATE OF ADMISSION: 06/13/2016 DATE OF DISCHARGE: 06/17/2016 DISCHARGE DIAGNOSES: 1. Bradycardia with near syncope. 2. Acute gastritis with nausea and vomiting. 3. Hypotension. 4. Prerenal azotemia. 5. Recent colonoscopy on 05/30/2016 with polyp removal. 6. History of Legionnaires' disease. 7. 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 8. Weight loss of 18 pounds. HOSPITAL COURSE: I assumed the care of this 66-year-old male, who was previously healthy, but he has not felt well since colonoscopy done on 05/30/2016. has had squamous cell CA of the left ear with partial ear removal and radiation treatment. Also had Legionnaires' disease in earlier time frame. Basically on 06/09/2016 developed rash and had recurrent episodes of nausea and vomiting. He was aggressively treated with IV fluids. He was found to be hypotensive on numerous vacations and was treated with dopamine also for his heart rate. The patient has had up to four-second pauses bradycardia with heart rates in the 30 and it was deemed today that he would be transferred to [facility] for higher level of care. PHYSICAL EXAMINATION: VITAL SIGNS: On the day of discharge, he had hypotensive episode of 79/63, pulse 66 with heart rates into the 30s, respirations were 24, pulse ox was 96% on room air. GENERAL: He was receiving fluid bolus when I saw him. He was little bit dizzy. This did resolve. His color was somewhat pale. TONGUE: His tongue was moist. NECK: Supple. LUNGS: Clear to auscultation. CARDIOVASCULAR: Bradycardic rhythm and rate. EXTREMITIES: Without edema. LABORATORY DATA: Yesterday albumin of 2.8 and cortisol levels were normal x 2. His white blood cell count at one point was 14.5; however, it was 9.4 yesterday morning. PLAN: Transferred to [facility], accepting doctor is Dr. Steen. I asked the patient to write down the narrative of the chronological order of the things that have been going wrong as far as his protracted illness. WOODY MARS DO DR: JH/sean JOB#: [id number] / [id number] tapan Steen Dr.
== END 2016-06-17 13:09 | disposition short-term general hospital (02) | DRG 392 ==
LOC: ER 17:38 → ICU 21:31
PROVIDERS: ADMIT Internal Medicine; ATTEND Internal Medicine
DX: K29.00 Acute gastritis without bleeding (principal); K52.9 Noninfective gastroenteritis and colitis, unspecified; I95.1 Orthostatic hypotension; R00.1 Bradycardia, unspecified; I10 Essential (primary) hypertension; M15.9 Polyosteoarthritis, unspecified; E86.0 Dehydration; E78.5 Hyperlipidemia, unspecified; E86.1 Hypovolemia; E87.6 Hypokalemia; R63.4 Abnormal weight loss; Z68.24 Body mass index [BMI] 24.0-24.9, adult; Z87.01 Personal history of pneumonia (recurrent); Z80.0 Family history of malignant neoplasm of digestive organs; Z82.3 Family history of stroke; Z82.49 Family history of ischemic heart disease and other diseases of the circulatory system; Z85.828 Personal history of other malignant neoplasm of skin; Z87.891 Personal history of nicotine dependence; Z92.3 Personal history of irradiation
CPT/HCPCS: 36415; 71010; 74022; 80047; 80048; 80053; 80076; 81001; 82533; 82550; 83605; 83690; 83735; 83880; 84443; 84484; 85007; 85027; 85610; 85730; 87040; 87641; 93005; 93306; 96360; 96361; G0480; G0481; J1265; J2405; J3480; 99285-25; J7030

== ENCOUNTER 2018-04-05 10:27 | Emergency (ER) | payer MEDICARE ==
[~2018-04-05] VITALS: Ht 185.4 cm; Wt 82.6 kg
[~2018-04-05 10:27] MED LIST: MIDO5TAB PO
[2018-04-05 11:05] VITALS: BP 138/78
[2018-04-05] MEDS ORDERED: DIPHTH,PERTUSS(ACELL),TET TOX 0.5 ML DISP.SYRIN. VAX IM ONE (11:15)
[2018-04-05] MEDS ORDERED: CEPH-264 PO (11:53)
[2018-04-05] MEDS ORDERED: HYDR25TA PO (11:53)
--- NOTE | 2018-04-05 11:53 | PHYS DOC ---
Past History Past Medical History: Pneumonia, Other Past Surgical History: Other Smoking: Non-smoker Alcohol Use: Occasionally Drug Use: None Adult General Chief Complaint Chief Complaint: HAND PROBLEM HPI HPI Patient is a 67 year old right-handed male who presents with complaining of right hand edema and erythema since yesterday morning. Patient states he woke up yesterday morning itching of right middle finger and erythema that gradually getting worse. Patient denies pain but complaining of tightness of his hand because of edema. Patient denies focal neuro deficit, injury, fever and chills. Patient states he was able to play golf yesterday. Patient is not sure about last tetanus immunization. Review of Systems Review of Systems Constitutional: Denies fever or chills [] Eyes: Denies change in visual acuity, redness, or eye pain [] HENT: Denies nasal congestion or sore throat [] Respiratory: Denies cough or shortness of breath [] Cardiovascular: No additional information not addressed in HPI [] GI: Denies abdominal pain, nausea, vomiting, bloody stools or diarrhea [] : Denies dysuria or hematuria [] Musculoskeletal: Denies back pain or joint pain [] Integument: Denies rash, reports skin lesions [] Neurologic: Denies headache, focal weakness or sensory changes [] Endocrine: Denies polyuria or polydipsia [] All other systems were reviewed and found to be within normal limits, except as documented in this note. Current Medications Current Medications Current Medications Medications (Trade) Dose Ordered Sig/Panfilo Start Time Stop Time Status Last Admin Dose Admin Diphtheria/ Tetanus/Acell Pertussis (Boostrix) 0.5 ml ONCE ONCE 04/05/18 11:15 04/05/18 11:16 DC Allergies Allergies Allergies Coded Allergies Type Severity Reaction Last Updated Verified No Known Drug Allergies 06/13/16 No Physical Exam Physical Exam Constitutional: Well developed, well nourished, mild distress, non-toxic appearance. [] HENT: Normocephalic, atraumatic Eyes: PERRLA, EOMI, conjunctiva normal, no discharge. [] Neck: Normal range of motion, no tenderness, supple, no stridor. [] Cardiovascular:Heart rate regular rhythm, no murmur [] Lungs & Thorax: Bilateral breath sounds clear to auscultation [] Skin: Warm, dry, no erythema, no rash. [] Extremities: Right hand feet moderate edema and mild erythema, right middle finger with puncture wound in medial phalanx without sign of abscess, painful range of motion, no neurovascular deficit. Neurologic: Alert and oriented X 3, normal motor function, normal sensory function, no focal deficits noted. [] Psychologic: Affect normal, judgement normal, mood normal. [] Current Patient Data Vital Signs Vital Signs Date Time Temp Pulse Resp B/P (MAP) Pulse Ox O2 Delivery O2 Flow Rate FiO2 04/05/18 11:05 98.2 70 18 98 Room Air EKG EKG [] Radiology/Procedures Radiology/Procedures [] Course & Med Decision Making Course & Med Decision Making Evaluation of patient in ER showed 67-year-old male patient with right hand edema and erythema and insect bite in middle finger without sign of abscess or lymphangitis. Patient was not up-to-date with tetanus immunization and had Tdap in ER. Plan to discharge patient home with prescription of Keflex and Atarax with diagnosis of hand cellulitis and insect bite. Patient instructed to wrap his hands with warm moist towel and return to ER if the condition does not getting better in 48 hours. Dragon Disclaimer Dragon Disclaimer This electronic medical record was generated, in whole or in part, using a voice recognition dictation system. Departure Departure: Impression: Primary Impression: Cellulitis of right hand Additional Impression: Insect bite Disposition: 01 HOME, SELF-CARE (at) Condition: STABLE Referrals: MAURA AGUIAR MD (PCP) Patient Instructions: Cellulitis, Insect Bite Additional Instructions: Apply moist warm pad on right hand Follow-up with your primary care physician in 2-3 days Return to ER if not getting better Scripts Cephalexin (KEFLEX) 500 Mg Capsule 2 CAP PO Q12HR for infection, #28 CAP Prov: ROSALEE BOOKER MD 04/05/18 Hydroxyzine Hcl (HYDROXYZINE HCL) 25 Mg Tablet 1 TAB PO TID PRN for ITCHING, #20 TAB Prov: ROSALEE BOOKER MD 04/05/18 Problem Qualifiers ROSALEE BOOKER MD Apr 05, 2018 11:53
== END 2018-04-05 12:08 | disposition home or self-care (01) ==
LOC: ER 10:27
DX: S60.462A Insect bite (nonvenomous) of right middle finger, initial encounter (principal); L03.113 Cellulitis of right upper limb; W57.XXXA Bitten or stung by nonvenomous insect and other nonvenomous arthropods, initial encounter; Y93.89 Activity, other specified; Y92.89 Other specified places as the place of occurrence of the external cause; Y99.8 Other external cause status
CPT/HCPCS: 90471; 90715; 99283-25

== ENCOUNTER 2020-10-12 10:55 | Emergency (ER) | payer MEDICARE ==
[~2020-10-12] VITALS: Ht 182.9 cm; Wt 82.0 kg
[~2020-10-12 10:55] MED LIST changes: +CEPH-264 PO; +HYDR25TA PO; -MIDO5TAB PO; +MIDO5TAB4 PO
[2020-10-12] MEDS ORDERED: IV NORMAL SALINE 1,000ML 1,000 ML IV ONE (11:30)
--- NOTE | 2020-10-12 11:38 | PHYS DOC ---
Past History Past Medical History: Pneumonia, Other Additional Past Medical Histor: CLL, SCC, Legionairs in past Past Surgical History: Pacemaker, Other Additional Past Surgical Histo: Part of left ear removed d/t cancer, back Smoking: Non-smoker Alcohol Use: Occasionally Drug Use: None General Adult EDM: Chief Complaint: Cough HPI: HPI: 70-year-old male presents with cough, congestion, fatigue. He has had these symptoms for 4 days now. He initially had a sore throat which has improved. Patient talked to his PCP 2 days ago and went to [facility] for a Covid test. It was negative. Patient is fully vaccinated. He coughed most of the night last ni ght. He feels like he might be wheezing. He smoked many years ago for 5 or 6 years. No history of diagnosis of COPD or asthma. He does have a diagnosis of CLL so his primary care physician thought he should come in for evaluation. Patient denies fever. No fever on arrival. Review of Systems: Review of Systems: Constitutional: Denies fever or chill. Fatigue, body aches. Eyes: Denies change in visual acuity HENT: Denies nasal congestion or sore throat Respiratory: Cough with mild shortness of breath Cardiovascular: Denies chest pain or edema GI: Denies abdominal pain, nausea, vomiting, bloody stools or diarrhea : Denies dysuria Musculoskeletal: Denies back pain or joint pain Integument: Denies rash Neurologic: Denies headache, focal weakness or sensory changes Endocrine: Denies polyuria or polydipsia Lymphatic: Denies swollen glands Psychiatric: Denies depression or anxiety Current Medications: Current Meds: Current Medications Medications (Trade) Dose Ordered Sig/Panfilo Start Time Stop Time Status Last Admin Dose Admin Sodium Chloride 1,000 ml @ 1,000 mls/hr 1X ONCE 10/12/20 11:30 10/12/20 12:29 Allergies: Allergies: Allergies Coded Allergies Type Severity Reaction Last Updated Verified No Known Drug Allergies 10/12/20 No Physical Exam: PE: Constitutional: Well developed, well nourished, no acute distress, non-toxic appearance. [] HENT: Normocephalic, atraumatic, bilateral external ears normal, oropharynx moist, no oral exudates, nose normal. [] Eyes: PERRLA, EOMI, conjunctiva normal, no discharge. [] Neck: Normal range of motion, no tenderness, supple, no stridor. [] Cardiovascular:Heart rate regular rhythm, no murmur [] Lungs & Thorax: Expiratory wheezing of the left lung upper and lower. [] Abdomen: Bowel sounds normal, soft, no tenderness, no masses, no pulsatile masses. [] Skin: Warm, dry, no erythema, no rash. [] Back: No tenderness, no CVA tenderness. [] Extremities: No tenderness, no cyanosis, no clubbing, ROM intact, no edema. [] Neurologic: Alert and oriented X 3, normal motor function, normal sensory func tion, no focal deficits noted. [] Psychologic: Affect normal, judgement normal, mood normal. [] Current Patient Data: Vital Signs: Vital Signs Date Time Temp Pulse Resp B/P (MAP) Pulse Ox O2 Delivery O2 Flow Rate FiO2 10/12/20 11:05 98.2 88 21 142/73 96 EKG: EKG: Sinus rhythm, rate 90, normal axis, no ST elevation or depression. [] Radiology/Procedures: Radiology/Procedures: [] Heart Score: C/O Chest Pain: N/A Risk Factors: Risk Factors: DM, Current or recent (<one month) smoker, HTN, HLP, family history of CAD, obesity. Risk Scores: Score 0 - 3: 2.5% MACE over next 6 weeks - Discharge Home Score 4 - 6: 20.3% MACE over next 6 weeks - Admit for Clinical Observation Score 7 - 10: 72.7% MACE over next 6 weeks - Early Invasive Strategies Course & Med Decision Making: Course & Med Decision Making Pertinent Labs and Imaging studies reviewed. (See chart for details) The patient's labs are significant for hemoglobin 9.6. Review of the patient's chart shows labs in the 12's previously. We do not have the recent result in the last 2 years. He does have a high percentage of lymphocytes. He has a slightly elevated white count of 13.1. His troponin is negative. His chest x- ray shows some nonspecific mild, bilateral patchy areas. See official read for more details. The patient's symptoms could still be viral. I do not see any reason to admit the patient to the hospital at this time. He will follow-up closely with his primary care physician. If his condition worsens or new symptoms develop, he is welcome to come back to the emergency room. He is stable for discharge at this time. [] Dragon Disclaimer: Dragon Disclaimer: This electronic medical record was generated, in whole or in part, using a voice recognition dictation system. Departure Departure: Impression: Primary Impression: Viral syndrome Disposition: HOME / SELF CARE / HOMELESS Condition: STABLE Referrals: MAURA AGUIAR MD (PCP) Patient Instructions: Viral Syndrome MEGHNA TIRADO DO Oct 12, 2020 11:38
[2020-10-12] MEDS ORDERED: IPRATRPIUM/ALBUTEROL 0.5/2.5MG 3 ML NEBU. NEB ONE (11:45)
[2020-10-12 12:07] LABS: BASO % 0 % (0-3); EOS % 0 % (0-3); HEMATOCRIT 29.1 % (39.0-53.0); HEMOGLOBIN 9.6 g/dL (13.0-17.5); LYMPH # 11.8 x10^3/uL (1.0-4.8); LYMPH % 91 % (24-48); MEAN CORPUSCULAR HEMOGLOBIN 36 pg (25-35); MEAN CORPUSCULAR HGB CONC 33 g/dL (31-37); MEAN CORPUSCULAR VOLUME 108 fL (79-100); MONO # 0.1 x10^3/uL (0.0-1.1); MONO % 1 % (0-9); NEUT # 1.1 x10^3uL (1.8-7.7); NEUT % 9 % (31-73); PLATELET COUNT 128 x10^3/uL (140-400); RED CELL DISTRIBUTION WIDTH 15.7 % (11.5-14.5); WHITE BLOOD COUNT 13.1 x10^3/uL (4.0-11.0)
[2020-10-12 12:23] LABS: CALCIUM 8.8 mg/dL (8.5-10.1); CREATININE 1.2 mg/dL (0.7-1.3); GFR 59.7; POTASSIUM 4.3 mmol/L (3.5-5.1)
[2020-10-12 12:30] LABS: ALBUMIN/GLOBULIN RATIO 1.5 (1.0-1.7); TOTAL BILIRUBIN 0.8 mg/dL (0.2-1.0); TOTAL PROTEIN 6.6 g/dL (6.4-8.2)
--- NOTE | 2020-10-12 12:50 | RAD ---
EXAMINATION: XR CHEST 1V CLINICAL HISTORY: Fever, cough, congestion onset Friday EXAM DATE/TIME: 10/12/2020 11:36 AM COMPARISON: 06/14/2016 FINDINGS: Lines, Tubes, and Devices: Left-sided dual-chamber cardiac pacemaker. Cardiomediastinal Silhouette: Normal heart size. Aortic atherosclerotic calcification. Lungs and Pleura: Minimal patchy opacities in the bilateral lower lung zones. No evidence of pleural effusion. Pulmonary vasculature within normal limits. Bones and Soft Tissues: Degenerative changes of the thoracic spine. IMPRESSION: Minimal patchy opacities in the bilateral lower lung zones, nonspecific. Electronically signed by: Darrick Souza DO (10/12/2020 12:48 PM) [id number]
[2020-10-12 13:05] VITALS: BP 130/70
[2020-10-12 14:13] LABS: % ATYL 20 % (0-0); % BANDS 2 % (0-9); % LYMPHS 64 % (24-48); % MONOS 2 % (0-10); % SEGS 12 % (35-66); NUCLEATED RBC 1
[2020-10-12 14:14] LABS: PLT ESTIMATE DECREASED (ADEQUATE)
--- NOTE | 2020-10-13 00:41 | EKG ---
[address] [id number] Test Date: 2020-10-12 Test Time: 11:46:22 Pat Name: MOIRA ARIZMENDI Department: Room: Gender: M [employer] Education Paraprofessional: RAUL : 1950 Requested By: MEGHNA TIRADO Order Number: [id number] Reading MD: Measurements Intervals [place] Rate: 90 P: 66 TN: 156 QRS: 67 QRSD: 84 T: 82 QT: 330 QTc: 407 Interpretive Statements SINUS RHYTHM NORMAL ECG RI6.02 No previous ECG available for comparison
== END 2020-10-12 13:30 | disposition home or self-care (01) ==
LOC: ER 10:55
DX: B34.9 Viral infection, unspecified (principal); Z95.0 Presence of cardiac pacemaker
CPT/HCPCS: 36415; 71045; 80053; 84484; 85007; 85025; 93005; 94640; 96360; 99285; J7030

== ENCOUNTER → 2020-10-20 | Outpatient (CLI) | payer MEDICARE ==
[2020-10-12 13:05] VITALS: BP 130/70
--- NOTE | 2020-10-20 11:33 | RAD ---
XR CHEST 2V History: Reason: SHORTNESS OF BREATH, COVID SYMPTOMS, COUGH / Spl. Instructions: / History: Comparison: October 12, 2020 Findings: Ill-defined right basilar opacity. Hyperinflation with emphysematous changes. No pleural effusion. No pneumothorax. Left-sided pacemaker, unchanged. Unchanged heart size. Impression: 1. Mild ill-defined right basilar opacity, may represent atelectasis or developing infiltrate. Recom mend follow-up. Electronically signed by: Terry Walker DO (10/20/2020 11:30 AM) [id number]
== END ==
LOC: RAD 10:45
PROVIDERS: ATTEND Family Medicine
DX: R91.8 Other nonspecific abnormal finding of lung field (principal); J43.9 Emphysema, unspecified
CPT/HCPCS: 71046